=== PATIENT | male | born 1975 | race Two or more races ===

== ENCOUNTER 2025-06-18 17:24 | Emergency (ER) | payer MEDICAID, OTHER ==
[~2025-06-18] VITALS: Ht 175.3 cm; Wt 95.9 kg
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
--- NOTE | 2025-06-18 19:12 | DVH ---
CLINICAL HISTORY: head injury TECHNIQUE: Helical imaging carried out from skull base to vertex without intravenous contrast. This e xam was performed according to our departmental dose optimization program. Up-to-date CT equipment an d radiation dose reduction techniques are utilized as appropriate. 55.06 CTDIVol: 55.06 mGy DLP: 992.8 mGy-cm WID: COMPARISON: None FINDINGS: The ventricles and subarachnoid spaces are normal in size and configuration. There is no midline brianna ft or mass effect. The diaz white matter interfaces are maintained. The basal cisterns are patent. Th ere is no evidence of acute intracranial hemorrhage or extra-axial fluid collection. The mastoid air cells and visualized paranasal sinuses are well-aerated aside from mild mucosal thickening of the rig ht frontal sinus. IMPRESSION: 1. No acute intracranial abnormality.
[2025-06-18 19:38] VITALS: BP 110/75; PULSE 70; RESP 17; TEMP 98.6; O2SAT 96
== END 2025-06-18 19:58 | disposition home or self-care (01) ==
LOC: ER 17:24
DX: S09.90XA Unspecified injury of head, initial encounter (principal); F07.81 Postconcussional syndrome; X58.XXXA Exposure to other specified factors, initial encounter; Y93.89 Activity, other specified; Y92.89 Other specified places as the place of occurrence of the external cause; Y99.8 Other external cause status
CPT/HCPCS: 70450